=== PATIENT | male | born 1990 | race Caucasian/White ===

== ENCOUNTER 2018-07-24 07:43 | Emergency (ER) | payer BC, OTHER ==
--- NOTE | 2018-07-24 08:08 | EDM.PDOC ---
ED HPI GENERAL MEDICAL PROBLEM - General Chief Complaint: Cardiovascular Problem Stated Complaint: PACEMAKER SHOCKED HIM Time Seen by Provider: 07/24/18 07:50 - History of Present Illness INITIAL COMMENTS - FREE TEXT/NARRATIVE: HISTORY AND PHYSICAL: History of present illness: Patient is a 28-year-old white male with history of arrhythmogenic right sided cardiomyopathy for which he has a pacer AICD in presents status post firing earlier today and no other symptoms or concern. He's had this happen in the past and has had it subsequently interrogated as is his request today Review of systems: As per history of present illness and below otherwise all systems reviewed and negative. Past medical history: As per history of present illness and as reviewed below otherwise noncontributory. Surgical history: As per history of present illness and as reviewed below otherwise noncontributory. Social history: No reported history of drug or alcohol abuse. Family history: As per history of present illness and as reviewed below otherwise noncontributory. Physical exam: HEENT: Atraumatic, normocephalic, pupils reactive, negative for conjunctival pallor or scleral icterus, mucous membranes moist, throat clear, neck supple, nontender, trachea midline. Lungs: Clear to auscultation, breath sounds equal bilaterally, chest nontender. Heart: S1S2, regular, negative for clicks, rubs, or JVD. Abdomen: Soft, nondistended, nontender. Negative for masses or hepatosplenomegaly. Negative for costovertebral tenderness. Pelvis: Stable nontender. Genitourinary: Deferred. Rectal: Deferred. Extremities: Atraumatic, negative for cords or calf pain. Neurovascular unremarkable. Neuro: Awake, alert, oriented. Cranial nerves II through XII unremarkable. Cerebellum unremarkable. Motor and sensory unremarkable throughout. Exam nonfocal. Diagnostics: EKG Therapeutics: None Impression: #1 history of arrhythmogenic right sided cardiomyopathy with AICD #2 observation status post AICD firing Definitive disposition and diagnosis as appropriate pending reevaluation and review of above. - Related Data Allergies Allergy/AdvReac Type Severity Reaction Status Date / Time No Known Allergies Allergy Verified 07/24/18 07:56 Past Medical History Cardiovascular History: Reports: Pacemaker, Other (See Below) Other Cardiovascular History: Has a pacemaker defibrillator - Infectious Disease History Infectious Disease History: Reports: Chicken Pox - Past Surgical History Cardiovascular Surgical History: Reports: Cardiac Ablation, Pacer Social & Family History - Tobacco Use Years of Tobacco use: 2 Packs/Tins Daily: 0.5 - Caffeine Use Caffeine Use: Reports: None - Recreational Drug Use Recreational Drug Use: No ED ROS GENERAL - Review of Systems Review Of Systems: ROS reveals no pertinent complaints other than HPI. 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 He is to return as needed as discussed and continue current medications Last Recorded V/S: Last Vital Signs Temp 36.2 C 07/24/18 07:52 Pulse 78 07/24/18 07:52 Resp 20 07/24/18 07:52 BP 134/106 H 07/24/18 07:52 Pulse Ox 97 07/24/18 07:52 - Orders/Labs/Meds Orders: Active Orders 24 hr Category Date Time Status EKG Documentation Completion [RC] STAT Care 07/24/18 08:08 Active Labs: Laboratory Tests 07/24/18 07/24/18 Range/Units 08:15 08:15 WBC 7.00 (4.0-11.0) K/uL RBC 5.03 (4.50-5.90) M/uL Hgb 15.1 (13.0-17.0) g/dL Hct 45.0 (38.0-50.0) % MCV 89.5 (80.0-98.0) fL MCH 30.0 (27.0-32.0) pg MCHC 33.6 (31.0-37.0) g/dL RDW Std Deviation 42.2 (28.0-62.0) fl RDW Coeff of Esdras 13 (11.0-15.0) % Plt Count 220 (150-400) K/uL MPV 10.70 (7.40-12.00) fL Neut % (Auto) 48.9 (48.0-80.0) % Lymph % (Auto) 41.1 H (16.0-40.0) % Calhoun % (Auto) 8.4 (0.0-15.0) % Eos % (Auto) 1.3 (0.0-7.0) % Baso % (Auto) 0.3 (0.0-1.5) % Neut # (Auto) 3.4 (1.4-5.7) K/uL Lymph # (Auto) 2.9 H (0.6-2.4) K/uL Calhoun # (Auto) 0.6 (0.0-0.8) K/uL Eos # (Auto) 0.1 (0.0-0.7) K/uL Baso # (Auto) 0.0 (0.0-0.1) K/uL Nucleated RBC % 0.0 /100WBC Nucleated RBCs # 0 K/uL Sodium 135 L (136-148) mmol/L Potassium 3.8 (3.5-5.1) mmol/L Chloride 103 (98-107) mmol/L Carbon Dioxide 28.4 (21.0-32.0) mmol/L BUN 16 (7.0-18.0) mg/dL Creatinine 1.0 (0.8-1.3) mg/dL Est Cr Clr Drug Dosing 110.96 mL/min Estimated GFR (MDRD) > 60.0 ml/min Glucose 100 (74-106) mg/dL Calcium 9.4 (8.5-10.1) mg/dL Magnesium 2.0 (1.8-2.4) mg/dL Total Bilirubin 0.3 (0.2-1.0) mg/dL AST 17 (15-37) IU/L ALT 31 (14-63) IU/L Alkaline Phosphatase 86 (46-116) U/L Total Protein 7.1 (6.4-8.2) g/dL Albumin 3.9 (3.4-5.0) g/dL Globulin 3.2 (2.6-4.0) g/dL Albumin/Globulin Ratio 1.2 (0.9-1.6) Departure - Departure Time of Disposition: 09:51 Disposition: Home, Self-Care 01 Condition: Good Clinical Impression: AICD discharge, Encounter for medical screening examination Forms: ED Department Discharge Additional Instructions: The following information is given to patients seen in the emergency department who are being discharged to home. This information is to outline your options for follow-up care. We provide all patients seen in our emergency department with a follow-up referral. The need for follow-up, as well as the timing and circumstances, are variable depending upon the specifics of your emergency department visit. If you don't have a primary care physician on staff, we will provide you with a referral. We always advise you to contact your personal physician following an emergency department visit to inform them of the circumstance of the visit and for follow-up with them and/or the need for any referrals to a consulting specialist. The emergency department will also refer you to a specialist when appropriate. This referral assures that you have the opportunity for followup care with a specialist. All of these measure are taken in an effort to provide you with optimal care, which includes your followup. Under all circumstances we always encourage you to contact your private physician who remains a resource for coordinating your care. When calling for followup care, please make the office aware that this follow-up is from your recent emergency room visit. If for any reason you are refused follow-up, please contact the [facility] emergency department at and asked to speak to the emergency department charge nurse. Follow-up with cotton picking machine operator as discussed return as needed as discussed continue her current medications - My Orders Last 24 Hours: My Active Orders 07/24/18 08:08 EKG Documentation Completion [RC] STAT - Assessment/Plan Last 24 Hours: My Active Orders 07/24/18 08:08 EKG Documentation Completion [RC] STAT
[2018-07-24 08:50] LABS: CHLORIDE,CL 103 mmol/L (98-107); SODIUM,NA 135 mmol/L (136-148)
== END 2018-07-24 10:30 | disposition home or self-care (01) ==
LOC: MW.ED 07:43
DX: T82.198A Other mechanical complication of other cardiac electronic device, initial encounter (principal); Z95.810 Presence of automatic (implantable) cardiac defibrillator
CPT/HCPCS: 36415; 80053; 83735; 85025; 93005; 99284-25